=== PATIENT | female | born 1995 | race Caucasian/White ===

== ENCOUNTER → 2023-06-24 11:00 | Outpatient (BNVA) | payer SELFPAY | PROVIDERS: PCP Registered Nurse; Visit Provider Nurse Practitioner Family | DX: Z11.3 Encounter for screening for infections with a predominantly sexual mode of transmission (principal); Z72.51 High risk heterosexual behavior | CPT/HCPCS: 87491; 87591 ==

== ENCOUNTER → 2023-07-03 10:12 | Outpatient (BNVA) | payer OTHER, MEDICAID, SELFPAY | PROVIDERS: PCP Registered Nurse; Visit Provider Nurse Practitioner Family | DX: Z68.29 Body mass index [BMI] 29.0-29.9, adult (principal); Z12.4 Encounter for screening for malignant neoplasm of cervix; Z01.419 Encounter for gynecological examination (general) (routine) without abnormal findings | CPT/HCPCS: 80053; 80061; 84443; 85025; 88175 ==

== ENCOUNTER 2023-08-09 08:19 | Emergency (ER) | payer OTHER, SELFPAY ==
[2023-08-09 08:37] VITALS: BP 130/91; PULSE 110; RESP 16; TEMP 36.8; O2SAT 99; BMI 28.6
--- NOTE | 2023-08-09 08:48 | W.ED.COVID ---
HPI - COVID General: Chief Complaint: COVID symptoms Stated Complaint: sore throat Time Seen by Provider: 08/09/23 08:44 Source: patient Mode of arrival: ambulatory Limitations: no limitations History of Present Illness: 28-year-old female states over the last 2 days she has had cough congestion along with sore throat and just not feeling well she denies any fevers denies any shortness of breath she is well-appearing here she has had no known sick contacts she had no vomiting no diarrhea. COVID 19 common symptoms: positive non-productive cough, body aches and throat pain; negative fever(s), chills, dyspnea, headache(s), nausea, vomiting or diarrhea COVID 19 other sytmptoms: negative chest pain COVID Results: SARS-CoV-2 Antigen (Rapid) positive (Negative) H 08/09/23 09:09 Review of Systems Const: Reports: body aches; Denies: fever(s), chills or change in appetite ENMT: Reports: throat pain and nasal discharge; Denies: dental pain Card: Denies: chest pain Resp: Reports: non-productive cough; Denies: dyspnea GI: Denies: abdominal pain, nausea, vomiting or diarrhea : Denies: dysuria Musc: Denies: neck pain or back pain Skin/Breast: Denies: rash Neuro: Denies: headache(s) PFSH ED PFSH: Medical History Low grade squamous intraepithelial lesion (LGSIL) on cervical Pap smear Surgical History History of tonsillectomy Family History Grandmother Diabetes Cancer, Onset Age: 70 paternal Father Diabetes Social History Smoking and tobacco/nicotine status: never used tobacco/nicotine Alcohol intake: never Substance/Drug Use: never Adopted: No Caregiver/support person: No Lives independently: Yes Marital status: Single Current occupational status: employed Sexually active: Yes Do you think of yourself as: Straight/Heterosexual Current gender identity: Female Physical Exam Const: COMMON NORMALS: no acute distress, patient oriented x3 and healthy appearing HENMT: COMMON NORMALS: normocephalic and atraumatic HEAD & SCALP: normocephalic and atraumatic THROAT: posterior oropharynx normal Eye: COMMON NORMALS: Equal, round and reactive pupils present and EOMs intact bilaterally PUPIL: Yes Equal, round and reactive pupils present Neck/C-Spine: COMMON NORMALS: full ROM and supple Chest: COMMONS NORMALS: normal inspection of the chest Resp: COMMON NORMALS: normal respiratory effort, No retractions, No use of accessory muscles and clear to auscultation bilaterally AUSCULTATION: clear to auscultation bilaterally Cardio: COMMON NORMALS: regular rate, regular rhythm and No murmurs present (Cardio) RATE: regular rate RHYTHM: regular rhythm Extremity: COMMON NORMALS: normal to inspection and full ROM Neuro: COMMON NORMALS: patient oriented x3, moves all extremities and no focal motor deficits Psych: COMMON NORMALS: mental status grossly normal, Normal thought process present and cooperative THOUGHT PROCESS: Normal thought process present Skin: COMMON NORMALS: no rashes or lesions noted and no wounds GENERAL SKIN EXAM: no rashes or lesions noted Course Vital Signs: Vital signs: Vital Signs Temperature 98.2 F 08/09/23 08:37 Pulse Rate 108 H 08/09/23 10:27 Respiratory Rate 16 08/09/23 10:27 Blood Pressure 128/84 08/09/23 10:27 Pulse Oximetry 98 08/09/23 10:27 Oxygen Delivery Me thod Room Air 08/09/23 09:15 MDM - COVID Medical Decision Making Patient presents here with COVID-like symptoms is COVID-positive she is well-appearing here in no distress patient stable for discharge we will prescribe her Paxlovid she is return if worsening. Medical Records I reviewed the patient's medical records. Lab Data I reviewed the patient's lab results. Laboratory Results SARS-CoV-2 Ag (Rapid) positive (Negative) H 08/09/23 09:09 Group A Strep Rapid Negative (Negative) 08/09/23 08:49 SARS-CoV-2 Antigen (Rapid) positive (Negative) H 08/09/23 09:09 All radiology interpretation(s) finalized by discharge Discharge Plan Discharge Patient Disposition: Home Clinical Impression: COVID-19 Condition: Stable Prescriptions: New Paxlovid 300 mg (150 mg x 2)-100 mg tablets,dose pack See Rx Instructions .ROUTE .COMPLEX Qty: 30 0RF Rx Instructions: take TWO 150 mg tablets of nirmatrelvir with ONE 100 mg tablet of ritonavir twice daily for 5 days No Action rizatriptan [Maxalt] 10 mg tablet See Rx Instructions PO .COMPLEX Qty: 10 0RF Rx Instructions: take 1 tab at onset of headache; if no relief may repeat 1 tab after at least 2 hrs; max = 3 tabs/24 hr PO (DME) pen needle, diabetic [Comfort EZ Pen Ward] 31 gauge x 5/16 needle See Rx Instructions .Route Qty: 100 2RF Rx Instructions: As directed Victoza 2-Chaitanya 0.6 mg/0.1 mL (18 mg/3 mL) pen injector See Rx Instructions SUBCUT .COMPLEX Rx Instructions: inject 0.6mg subcutaneously once daily x 7 days; then 1.2mg daily, not to exceed 1.8mg/day SUBCUT Discharge Orders: Discharge ED (Routine); Ordered 08/09/23 Ordered By: Carl Hough Referrals: Rayna Barrera FNP [Primary Care Provider] - 1-3 days Discharge Diet: Advance as tolerated Discharge Activity: Resume usual activity Patient Instructions: COVID-19 (Coronavirus Disease 2019) (ED) Coding Level of Care Code ED Historiography Professor for Jacqueline Costa
[2023-08-09] MEDS: dexamethasone 10 mg/mL INJ IM (09:04)
[2023-08-09] MEDS: ketorolac 30 mg/mL INJ IM (09:06)
[2023-08-09 09:10] VITALS: O2SAT 100
[2023-08-09 09:15] VITALS: BP 121/85; PULSE 108; RESP 16; O2SAT 100
[2023-08-09 10:27] VITALS: BP 128/84; PULSE 108; RESP 16; O2SAT 98
[2023-08-09 10:51] LABS: SARS Covid-2 Antigen positive (Negative)
[2023-08-09 10:51] LABS: Rapid Strep A Test Negative (Negative)
[2023-08-09 11:25] VITALS: BP 121/83; PULSE 91; RESP 16; O2SAT 100
== END 2023-08-09 11:29 | disposition home or self-care (01) ==
PROVIDERS: Emergency Provider Emergency Medicine; PCP Registered Nurse
DX: U07.1 COVID-19 (principal)
CPT/HCPCS: 87081; 87426; 87880; 96372; 99284; J1100; J1885

== ENCOUNTER → 2023-08-15 08:43 | Outpatient (BNVA) | payer OTHER, SELFPAY | PROVIDERS: PCP Registered Nurse; Visit Provider Obstetrics & Gynecology | DX: R87.612 Low grade squamous intraepithelial lesion on cytologic smear of cervix (LGSIL) (principal); R87.619 Unspecified abnormal cytological findings in specimens from cervix uteri | CPT/HCPCS: 81025; 88305; 88342 ==

== ENCOUNTER → 2024-05-31 08:49 | Outpatient (BNVA) | payer OTHER, SELFPAY | PROVIDERS: PCP Registered Nurse; Visit Provider Obstetrics & Gynecology | DX: Z30.09 Encounter for other general counseling and advice on contraception (principal) | CPT/HCPCS: 80053; 81001; 81025; 85025 ==